=== PATIENT | male | born 1990 | race Caucasian/White ===

== ENCOUNTER 2019-05-08 09:21 | Emergency (ER) | payer OTHER ==
[~2019-05-08] VITALS: Ht 190.5 cm; Wt 143.2 kg
[2019-05-08 09:22] VITALS: BP 111/56
[2019-05-08] MEDS ORDERED: LEVO125T4 PO (09:31)
[2019-05-08] MEDS ORDERED: SUBO8MIS SL (09:31)
[2019-05-08] MEDS ORDERED: GABA-845 PO (09:31)
[2019-05-08] MEDS ORDERED: ADACEL/BOOSTRIX VACCINE (DIPHTH/PERTUSS/ACELL/TETANUS)0.5ML SYR (90715) IM ONE (10:15)
[2019-05-08 10:45] LABS: BASO # 0.1 10^3/uL (0.0-0.2); BASO % 0.8 % (0.0-1.0); EOS # 0.2 10^3/uL (0.0-0.5); EOS % 2.1 % (0.0-3.0); HEMATOCRIT 38.2 % (42.0-52.0); HEMOGLOBIN 12.1 g/dl (13.5-17.5); LYMPH % 13.1 % (24.0-44.0); MEAN CORPUSCULAR HEMOGLOBIN 27.6 pg (27.0-33.0); MEAN CORPUSCULAR HGB CONC 31.7 g/dl (32.0-36.5); MEAN CORPUSCULAR VOLUME 87.2 fl (80.0-96.0); MONO # 0.5 10^3/uL (0.0-0.8); MONO % 5.8 % (0.0-5.0); NEUTROPHILS % 77.8 % (36.0-66.0); PLATELET COUNT, AUTOMATED 295 10^3/uL (150-450); RED BLOOD COUNT 4.38 10^6/uL (4.30-6.10); WHITE BLOOD COUNT 7.7 10^3/uL (4.0-10.0)
[2019-05-08 11:10] LABS: BLOOD UREA NITROGEN 13 MG/DL (7-18); CALCIUM LEVEL 8.8 MG/DL (8.5-10.1); CARBON DIOXIDE LEVEL 25 MEQ/L (21-32); CHLORIDE LEVEL 106 MEQ/L (98-107); CREATININE FOR GFR 0.69 MG/DL (0.70-1.30); GLOMERULAR FILTRATION RATE > 60.0 (>60); GLUCOSE, FASTING 97 MG/DL (70-100); SODIUM LEVEL 139 MEQ/L (136-145)
[2019-05-08] MEDS ORDERED: LIDOCAINE 1% MDV 20ML VIAL As Ordered ONE (12:10)
[2019-05-08] MEDS ORDERED: LIDOCAINE 1% MDV 20ML VIAL SC ONE (12:15)
--- NOTE | 2019-05-08 12:27 | REP ---
Soft-tissue extremity ultrasound: Right wrist. History: Right wrist and forearm infection, rule out abscess. Findings: Scanning over the right wrist in the area of the red palpable raised lesion demonstrates a 2.7 x 1.4 x 1.7 cm complex fluid collection with peripherally increased blood flow consistent with soft tissue abscess. Electronically Signed by William Haro MD 05/08/2019 11:12 A
--- NOTE | 2019-05-08 12:50 | REP ---
Right forearm: Two views. History: Distal infection, rule out osteo. Findings: Two views right forearm demonstrate diffuse forearm soft tissue swelling in the subcutaneous layer. There is soft tissue swelling over the wrist, dorsally and ventrally. Bones, joints and soft tissues are otherwise unremarkable. No bony erosive or destructive lesion. Electronically Signed by William Haro MD 05/08/2019 12:43 P
[2019-05-08 12:54] LABS: AMPHETAMINES LEVEL URINE NEGATIVE (NEGATIVE); BARBITURATES URINE NEGATIVE (NEGATIVE); BENZODIAZEPINES URINE NEGATIVE (NEGATIVE); CANNABINOIDS URINE NEGATIVE (NEGATIVE); COCAINE METABOLITE URINE POSITIVE (NEGATIVE); METHADONE URINE NEGATIVE (NEGATIVE); OPIATES URINE NEGATIVE (NEGATIVE); PHENCYCLIDINE URINE NEGATIVE (NEGATIVE)
[2019-05-08] MEDS ORDERED: BACT800T5 PO (13:20)
[2019-05-08] MEDS ORDERED: cefTRIAXone SOD 1 GM VIAL (J0696) IM ONE (13:30)
[2019-05-08] MEDS ORDERED: LIDOCAINE 1% SDV 5 ML VIAL DILUENT ONE (13:30)
== END 2019-05-08 14:02 | disposition home or self-care (01) ==
LOC: M ED 09:21 → EEVIPCON 09:21 → M ED 14:02
DX: L02.413 Cutaneous abscess of right upper limb (principal); L03.113 Cellulitis of right upper limb; F17.200 Nicotine dependence, unspecified, uncomplicated; Z79.899 Other long term (current) drug therapy
CPT/HCPCS: 10060; 36415; 73090; 76882; 80048; 80307; 85025; 85652; 86140; 87040; 87070; 87077; 87186; 87205; 90471; 90715; 96372; 99283; J0696